=== PATIENT | male | born 1965 | race Caucasian/White ===

== ENCOUNTER 2017-11-27 14:07 | Observation (INO) | payer OTHER ==
[2017-11-27 14:34] LABS: Basophils # (A) 0.1 k/uL (0-0.2); Basophils % (A) 1 %; Eosinophils # (A) 0.1 k/uL (0-0.7); Eosinophils % (A) 2 %; HCT 46.3 % (39.0-53.0); HGB 15.2 gm/dL (13.0-17.5); Lymphocytes # (A) 1.8 k/uL (1.0-4.8); Lymphocytes % (A) 32 %; MCH 30.6 pg (25.0-35.0); MCV 92.7 fL (80.0-100.0); Mean Platelet Volume 6.2; Monocytes # (A) 0.3 k/uL (0-1.0); Monocytes % (A) 6 %; Neutrophils # (A) 3.3 k/uL (1.3-7.7); Neutrophils % (A) 57 %; Platelet Count 244 k/uL (150-450); RBC 4.99 m/uL (4.30-5.90); RDW 13.1 % (11.5-15.5); WBC 5.8 k/uL (3.8-10.6)
[2017-11-27 14:39] LABS: INR 1.1 (<1.2); Partial Thromboplastin Time 25.8 sec (22.0-30.0); Prothrombin Time 10.3 sec (9.0-12.0)
[2017-11-27 14:41] LABS: ALT 24 U/L (21-72); AST 21 U/L (17-59); Albumin 4.5 g/dL (3.5-5.0); Alkaline Phosphatase 68 U/L (38-126); Anion Gap 11 mmol/L; Blood Urea Nitrogen 16 mg/dL (9-20); Calcium 9.3 mg/dL (8.4-10.2); Carbon Dioxide 26 mmol/L (22-30); Chloride 102 mmol/L (98-107); Glucose 91 mg/dL (74-99); Potassium 4.3 mmol/L (3.5-5.1); Sodium 139 mmol/L (137-145); Total Bilirubin 0.9 mg/dL (0.2-1.3); Total Protein 7.5 g/dL (6.3-8.2)
[2017-11-27 14:43] LABS: Creatine Kinase 42 U/L (55-170)
--- NOTE | 2017-11-27 14:55 | XR ---
EXAMINATION TYPE: XR chest 2V DATE OF EXAM: 11/27/2017 COMPARISON: 09/25/2015 INDICATION: Altered mental status TECHNIQUE: Frontal and lateral views of the chest are obtained. FINDINGS: The heart size is normal. The pulmonary vasculature is normal. The lungs are clear. IMPRESSION: 1. No acute pulmonary process.
[2017-11-27 14:56] LABS: Troponin I <0.012 ng/mL (0.000-0.034)
--- NOTE | 2017-11-27 14:59 | CT ---
EXAMINATION TYPE: CT brain wo con DATE OF EXAM: 11/27/2017 COMPARISON: None HISTORY: Altered mental status CT DLP: 1056.5 mGycm Automated exposure control for dose reduction was used. FINDINGS: Moderate degenerative change with a greater central component. Nonspecific low-attenuation the perive ntricular white matter. Tiny area of abnormal density within the left thalamus suggestive of remote l acunar infarction. Appears to be atrophic change of the cerebellum out of proportion to the cerebrum. Calvarium intact. No acute hemorrhage or midline shift. There is a nodular prominence the right MCA. IMPRESSION: DEGENERATIVE CHANGES WITH A GREATER INVOLVEMENT OF THE CEREBELLUM. THERE IS NONSPECIFIC WHITE MATTER CHANGES MOST TYPICAL REMOTE ISCHEMIA. IF THERE IS CONCERN FOR ACUTE ISCHEMIA CORRELATE WITH MRI CL INICALLY WARRANTED. NO ACUTE INTRACRANIAL HEMORRHAGE. THERE IS NODULAR PROMINENCE THE RIGHT MCA BEST SEEN ON AXIAL IMAGE 16 WHICH IS SUSPICIOUS FOR A SMALL ANEURYSM MEASURING 3 MM THIS COULD BE CORRELATED WITH MRA AND CTA [place] [facility] [place] [facility].
--- NOTE | 2017-11-27 15:04 | ED ---
General Adult HPI - General Chief complaint: Altered Mental Status Stated complaint: MEMORY LOSS Time Seen by Provider: 11/27/17 14:09 Source: patient, EMS, RN notes reviewed, old records reviewed Mode of arrival: EMS Limitations: no limitations - History of Present Illness Initial comments: 52-year-old male presents for evaluation of memory loss and confusion. Patient' s symptoms began around 11 AM. He presented for evaluation at approximately 2: 30 PM. He is accompanied by his states he had an episode of confusion and memory loss lasting about 20 minutes. Patient did not remember the events the morning he had some repetitive questioning. Patient denied headache. Denied focal numbness or weakness. He states that yesterday evening he had some left arm and left leg numbness which resolved in several minutes without any specific treatment. No history of CVA or TIA. No cardiovascular history. Patient denies alcohol consumption. Denies chest pain or shortness of breath. Denies fever or chills. - Related Data Home Medications Medication Instructions Recorded Confirmed Metoprolol Tartrate [Lopressor] 12.5 mg PO HS 09/25/15 11/27/17 Previous Rx's Medication Instructions Recorded Aspirin EC [Ecotrin Low Dose] 81 mg PO DAILY #1 tablet. 09/26/15 Allergies Allergy/AdvReac Type Severity Reaction Status Date / Time No Known Allergies Allergy Verified 11/27/17 14:12 Review of Systems ROS Statement: Those systems with pertinent positive or pertinent negative responses have been documented in the HPI. ROS Other: All systems not noted in ROS Statement are negative. Past Medical History Past Medical History: Hyperlipidemia, Hypertension Additional Past Medical History / Comment(s): sleep apnea-USES A CPAP MACHINE, KIDNEY STONE, BEGINNINGS OF CATARACTS History of Any Multi-Drug Resistant Organisms: None Reported Past Surgical History: Hernia Repair Additional Past Surgical History / Comment(s): LT INGUINAL HERNIA REPAIR, TUBES IN EARS,VASECTOMY Past Anesthesia/Blood Transfusion Reactions: No Reported Reaction Past Psychological History: No Psychological Hx Reported Smoking Status: Never smoker Past Alcohol Use History: Rare Past Drug Use History: None Reported - Past Family History Mother Family Medical History: Hypertension Father Family Medical History: No Reported History General Exam Limitations: no limitations General appearance: alert, in no apparent distress Head exam: Present: atraumatic, normocephalic Eye exam: Present: normal appearance, PERRL, EOMI. Absent: nystagmus Neck exam: Present: normal inspection. Absent: tenderness, meningismus Respiratory exam: Present: normal lung sounds bilaterally. Absent: respiratory distress, wheezes Cardiovascular Exam: Present: regular rate, normal rhythm GI/Abdominal exam: Present: soft. Absent: distended, tenderness Extremities exam: Present: normal inspection, normal capillary refill. Absent: pedal edema Neurological exam: Present: alert, oriented X3, CN II-XII intact, other (No ataxia, no dysarthria, normal speech). Absent: motor sensory deficit Psychiatric exam: Present: normal affect, normal mood Skin exam: Present: warm, dry, intact. Absent: cyanosis, diaphoretic Course Vital Signs 11/27/17 11/27/17 11/27/17 14:09 15:18 15:48 Temperature 98.1 F Pulse Rate 59 L 63 58 L Respiratory 16 16 18 Rate Blood Pressure 162/99 146/79 142/90 O2 Sat by Pulse 98 92 L 95 Oximetry 11/27/17 16:59 Temperature Pulse Rate 57 L Respiratory 16 Rate Blood Pressure 134/87 O2 Sat by Pulse 97 Oximetry EKG Findings - EKG Comments: EKG Findings:: EKG: Normal sinus rhythm, rate of 63, HI interval 202, QRS duration 102, QTC [address] segment elevation or depression Medical Decision Making - Medical Decision Making 52-year-old male with episode of confusion and amnesia. Patient has nonfocal neurologic exam. CT is obtained, shows pronounced cerebellar atrophy, likely secondary to remote ischemia, no intracranial hemorrhage, there is concern for aneurysm in the right MCA. CT angiography is ordered in the emergency department. EKG shows normal sinus rhythm, CBC, CMP and troponin are unremarkable. CTA pending. Case discussed with Dr. Regan who will accept admission, neurology placed on consult. Diagnosis: concern for TIA, amnesia, acute confusion resolved - Lab Data Result diagrams: 11/27/17 14:05 11/27/17 14:05 Lab Results 11/27/17 11/27/17 11/27/17 Range/Units 14:05 14:05 14:05 WBC 5.8 (3.8-10.6) k/uL RBC 4.99 (4.30-5.90) m/uL Hgb 15.2 (13.0-17.5) gm/dL Hct 46.3 (39.0-53.0) % MCV 92.7 (80.0-100.0) fL MCH 30.6 (25.0-35.0) pg MCHC 33.0 (31.0-37.0) g/dL RDW 13.1 (11.5-15.5) % Plt Count 244 (150-450) k/uL Neutrophils % 57 % Lymphocytes % 32 % Monocytes % 6 % Eosinophils % 2 % Basophils % 1 % Neutrophils # 3.3 (1.3-7.7) k/uL Lymphocytes # 1.8 (1.0-4.8) k/uL Monocytes # 0.3 (0-1.0) k/uL Eosinophils # 0.1 (0-0.7) k/uL Basophils # 0.1 (0-0.2) k/uL PT (9.0-12.0) sec INR (<1.2) APTT (22.0-30.0) sec Sodium 139 (137-145) mmol/L Potassium 4.3 (3.5-5.1) mmol/L Chloride 102 (98-107) mmol/L Carbon Dioxide 26 (22-30) mmol/L Anion Gap 11 mmol/L BUN 16 (9-20) mg/dL Creatinine 1.00 (0.66-1.25) mg/dL Est GFR (CKD-EPI)AfAm >90 (>60 ml/min/1.73 sqM) Est GFR (CKD-EPI)NonAf 86 (>60 ml/min/1.73 sqM) Glucose 91 (74-99) mg/dL Calcium 9.3 (8.4-10.2) mg/dL Total Bilirubin 0.9 (0.2-1.3) mg/dL AST 21 (17-59) U/L ALT 24 (21-72) U/L Alkaline Phosphatase 68 (38-126) U/L Total Creatine Kinase 42 L (55-170) U/L CK-MB (CK-2) 1.0 (0.0-2.4) ng/mL CK-MB (CK-2) Rel Index 2.4 Troponin I <0.012 (0.000-0.034) ng/mL Total Protein 7.5 (6.3-8.2) g/dL Albumin 4.5 (3.5-5.0) g/dL 11/27/17 Range/Units 14:05 WBC (3.8-10.6) k/uL RBC (4.30-5.90) m/uL Hgb (13.0-17.5) gm/dL Hct (39.0-53.0) % MCV (80.0-100.0) fL MCH (25.0-35.0) pg MCHC (31.0-37.0) g/dL RDW (11.5-15.5) % Plt Count (150-450) k/uL Neutrophils % % Lymphocytes % % Monocytes % % Eosinophils % % Basophils % % Neutrophils # (1.3-7.7) k/uL Lymphocytes # (1.0-4.8) k/uL Monocytes # (0-1.0) k/uL Eosinophils # (0-0.7) k/uL Basophils # (0-0.2) k/uL PT 10.3 (9.0-12.0) sec INR 1.1 (<1.2) APTT 25.8 (22.0-30.0) sec Sodium (137-145) mmol/L Potassium (3.5-5.1) mmol/L Chloride (98-107) mmol/L Carbon Dioxide (22-30) mmol/L Anion Gap mmol/L BUN (9-20) mg/dL Creatinine (0.66-1.25) mg/dL Est GFR (CKD-EPI)AfAm (>60 ml/min/1.73 sqM) Est GFR (CKD-EPI)NonAf (>60 ml/min/1.73 sqM) Glucose (74-99) mg/dL Calcium (8.4-10.2) mg/dL Total Bilirubin (0.2-1.3) mg/dL AST (17-59) U/L ALT (21-72) U/L Alkaline Phosphatase (38-126) U/L Total Creatine Kinase (55-170) U/L CK-MB (CK-2) (0.0-2.4) ng/mL CK-MB (CK-2) Rel Index Troponin I (0.000-0.034) ng/mL Total Protein (6.3-8.2) g/dL Albumin (3.5-5.0) g/dL Disposition Clinical Impression: Amnesia, Confusion Disposition: ADMITTED IP TO THIS [facility] Condition: Stable Is patient prescribed a controlled substance at d/c from ED?: No Referrals: Omari Kirby DO [Primary Care Provider] - 1-2 days Decision to Admit Reason: Admit from EC Decision Date: 11/27/17 Decision Time: 17:25
[2017-11-27] MEDS ORDERED: ASPIRIN 325 MG TAB PO STA (17:25)
--- NOTE | 2017-11-27 17:25 | CT ---
EXAMINATION TYPE: CT angio head neck DATE OF EXAM: 11/27/2017 HISTORY: Altered mental status. COMPARISON: CT DLP: 330.8 mGycm. Automated Exposure Control for Dose Reduction was Utilized. TECHNIQUE: CTA scan of the neck is performed with IV Contrast, patient injected with 65ml mL of Isov ue 370, axial images are obtained, coronal and sagittal reformatted images are reviewed. Three-D harmony nstructed images are created on an independent workstation and reviewed. FINDINGS: There is normal branching pattern of the great vessels on the aortic arch. There is arterial flow in the vertebral arteries which are fairly symmetric. There is arterial flow in the common internal and external carotid arteries bilaterally. The carotid artery bifurcations are widely patent. There is no evidence of carotid or vertebral artery aneurysm or dissection. There is arterial flow in the anterior middle and posterior cerebral arteries. The vertebrobasilar ar raheel system appears normal. There is normal contrast opacification of the venous sinuses. I see no ev idence of intracranial artery aneurysm or neovascularity. There is no mass effect. There is no eviden ce of stenosis. IMPRESSION: Normal CT angiogram of the neck. Normal CT angiogram of the brain.
--- NOTE | 2017-11-27 18:20 | P.HPIM ---
History of Present Illness H&P Date: 11/27/17 Chief Complaint: Memory Loss and confusion 52-year-old male presents to the ED via private vehicle for evaluation of memory loss and confusion. Patient's symptoms began around 11 AM. He presented for evaluation at approximately 2:30 PM. He is accompanied by his states he had an episode of confusion and memory loss lasting about 20 minutes. The is reporting it's more short-term memory loss, the patient has had increasingly stressful situation at work and was apparently recently demoted. Patient did not remember the events the morning he had some repetitive questioning. Patient denied headache or head trauma Denied focal numbness or weakness. He states that yesterday evening he had some left arm and left leg numbness which resolved in several minutes without any specific treatment. No history of CVA or TIA. No cardiovascular history. Patient denies alcohol consumption. Denies chest pain or shortness of breath. Denies fever or chills. Reports family history of heart disease in uncle that apparently had a brain aneurysm. On workup in the ER the patient had a CT of the head that showed showed changes in the cerebellum, with a nodular prominence in the right MCA suspicious for small aneurysm. Subsequent CTA of the brain and neck was normal. Past Medical History Past Medical History: Hyperlipidemia, Hypertension Additional Past Medical History / Comment(s): sleep apnea-USES A CPAP MACHINE, KIDNEY STONE, BEGINNINGS OF CATARACTS History of Any Multi-Drug Resistant Organisms: None Reported Past Surgical History: Hernia Repair Additional Past Surgical History / Comment(s): LT INGUINAL HERNIA REPAIR, TUBES IN EARS,VASECTOMY Past Anesthesia/Blood Transfusion Reactions: No Reported Reaction Past Psychological History: No Psychological Hx Reported Smoking Status: Never smoker Past Alcohol Use History: Rare Past Drug Use History: None Reported - Past Family History Mother Family Medical History: Hypertension Father Family Medical History: No Reported History Medications and Allergies Home Medications Medication Instructions Recorded Confirmed Type Metoprolol Tartrate [Lopressor] 12.5 mg PO HS 09/25/15 11/27/17 History Aspirin EC [Ecotrin Low Dose] 81 mg PO DAILY #1 tablet. 09/26/15 11/27/17 Rx Allergies Allergy/AdvReac Type Severity Reaction Status Date / Time No Known Allergies Allergy Verified 11/27/17 14:12 Physical Exam Vitals: Vital Signs Temp Pulse Resp BP Pulse Ox 11/27/17 16:59 57 L 16 134/87 97 11/27/17 15:48 58 L 18 142/90 95 11/27/17 15:18 63 16 146/79 92 L 11/27/17 14:09 98.1 F 59 L 16 162/99 98 Intake and Output 11/27/17 11/27/17 11/27/17 06:59 14:59 22:59 Other: Weight 81.647 kg Constitutional: No acute distress, conversant, pleasant Eyes: Anicteric sclerae, moist conjunctiva, no lid-lag, PERRLA ENMT: NC/AT,Oropharynx clear, no erythema, exudates Neck:Supple, FROM, no masses, or JVD, No carotid bruits; No thyromegaly Lungs: Clear to auscultation, Clear to percussion, Normal respiratory effort, no accessory muscle use Cardiovascular: Heart regular in rate and rhythm, No murmurs, gallops, or rubs no peripheral edema Abdominal: Soft Nontender, nom distended, no guarding, no rebound or rigidity, Normoactive bowel sounds No hepatomegaly, No splenomegaly, No palpable mass No abdominal wall hernia noted Skin: Normal temperature, tone, texture, turgor, No induration No subcutaneous nodules, No rash, lesions, No ulcers Extremities:No digital cyanosis No clubbing, Pedal pulses intact and symmetrical Radial pulses intact and symmetrical Normal gait and station, No calf tenderness Psychiatric: Depressed, flat affect, confused Neuro: Muscles Strength 5/5 in all 4 extremities, Sensation to light touch grossly present throughout, Cranial nerves II-XII grossly intact. No focal sensory deficits Results CBC & Chem 7: 11/27/17 14:05 11/27/17 14:05 Labs: Abnormal Lab Results - Last 24 Hours (Table) 11/27/17 Range/Units 14:05 Total Creatine Kinase 42 L (55-170) U/L Assessment and Plan (1) Amnesia Current Visit: Yes Status: Acute Code(s): R41.3 - OTHER AMNESIA SNOMED Code(s): 072518282 (2) Confusion Current Visit: Yes Status: Acute Code(s): R41.0 - DISORIENTATION, UNSPECIFIED SNOMED Code(s): 092748429 (3) Hypertension Current Visit: No Status: Acute Code(s): I10 - ESSENTIAL (PRIMARY) HYPERTENSION SNOMED Code(s): 79712063 Plan: Patient is placed in observation anticipate a less than 2 midnight stay with short-term memory loss of amnesia confusion triggered by acute stressful event at work. CTA of the head and neck are negative and is read as normal, and neurology Dr. Edwards has been consulted from the ER. Patient was given aspirin , and lipid panel at echocardiogram has been ordered We'll plan to consult big machine consultant psychiatry for further eval and recommendations. We'll continue to follow the patient's clinical course
[2017-11-27] MEDS: SODIUM CHLORIDE 0.9% 1,000 ML IV SCH (19:09)
[2017-11-28 06:55] LABS: Cholesterol 215 mg/dL (<200); HDL Cholesterol 42 mg/dL (40-60); LDL Cholesterol,Calculated 148 mg/dL (0-99); Triglycerides 126 mg/dL (<150)
--- NOTE | 2017-11-28 08:13 | ECHOF ---
Referral Reason:Thrombus MEASUREMENTS -------- HEIGHT: 170.2 cm WEIGHT: 82.1 kg BP: 136/81 RVIDd: 2.8 cm (< 3.3) IVSd: 1.9 cm (0.6 - 1.1) LVIDd: 3.3 cm (3.9 - 5.3) LVPWd: 1.7 cm (0.6 - 1.1) IVSs: 2.1 cm LVIDs: 2.1 cm LVPWs: 1.8 cm Ao Diam: 3.6 cm (2.0 - 3.7) AV Cusp: 1.9 cm (1.5 - 2.6) LA Diam: 3.0 cm (2.7 - 3.8) MV EXCURSION: 14.924 mm (> 18.000) MV EF SLOPE: 54 mm/s (70 - 150) EPSS: 0.3 cm MV E Porfirio: 0.74 m/s MV DecT: 226 ms MV A Porfirio: 0.90 m/s MV E/A Ratio: 0.82 AR PHT: 123 ms RAP: 5.00 mmHg RVSP: 16.77 mmHg FINDINGS -------- Sinus rhythm. This was a technically good study. The left ventricular size is normal. There is severe concentric left ventricular hypertrophy. Ove rall left ventricular systolic function is normal with, an EF between 55 - 60 %. The right ventricle is normal in size and function. The left atrium is normal in size. The right atrium is normal in size. Trace amount of aortic regurgitation. There is trace mitral regurgitation. Trace tricuspid regurgitation present. The right ventricular systolic pressure, as measured by Dopp ler, is 16.77mmHg. Pulmonic valve appears structurally normal. The aortic root size is normal. Normal inferior vena cava with normal inspiratory collapse consistent with estimated right atrial pre ssure of 5 mmHg. The pericardium is normal. CONCLUSIONS -------- 1. Sinus rhythm. 2. This was a technically good study. 3. The left ventricular size is normal. 4. There is severe concentric left ventricular hypertrophy. 5. Overall left ventricular systolic function is normal with, an EF between 55 - 60 %. 6. The right ventricle is normal in size and function. 7. The left atrium is normal in size. 8. The right atrium is normal in size. 9. Trace amount of aortic regurgitation. 10. There is trace mitral regurgitation. 11. Trace tricuspid regurgitation present. 12. The right ventricular systolic pressure, as measured by Doppler, is 16.77mmHg. 13. Pulmonic valve appears structurally normal. 14. The aortic root size is normal. 15. Normal inferior vena cava with normal inspiratory collapse consistent with estimated right atrial pressure of 5 mmHg. 16. The pericardium is normal. [employer] JOURNEYMAN: Lucero Foster RDCS
--- NOTE | 2017-11-28 14:53 | P.PN ---
Subjective Progress Note Date: 11/28/17 Patient feeling much better today, at bedside. Previously seen by neurology PA. Awaiting consult note, patient has no complaints. Also awaiting psychiatry consult Objective - Vital Signs Vital signs: Vital Signs Temp 98.1 F 11/28/17 11:14 Pulse 64 11/28/17 11:14 Resp 16 11/28/17 11:14 BP 135/85 11/28/17 11:14 Pulse Ox 96 11/28/17 11:14 Intake & Output 11/27/17 11/28/17 11/28/17 18:59 06:59 18:59 Intake Total 480 Balance 480 Weight 81.647 kg 82.2 kg Intake: Oral 480 Other: # Voids 1 1 - Exam Constitutional: No acute distress, conversant, pleasant Eyes: Anicteric sclerae, moist conjunctiva, no lid-lag, PERRLA ENMT: NC/AT,Oropharynx clear, no erythema, exudates Neck:Supple, FROM, no masses, or JVD, No carotid bruits; No thyromegaly Lungs: Clear to auscultation, Clear to percussion, Normal respiratory effort, no accessory muscle use Cardiovascular: Heart regular in rate and rhythm, No murmurs, gallops, or rubs no peripheral edema Abdominal: Soft Nontender, nom distended, no guarding, no rebound or rigidity, Normoactive bowel sounds No hepatomegaly, No splenomegaly, No palpable mass No abdominal wall hernia noted Skin: Normal temperature, tone, texture, turgor, No induration No subcutaneous nodules, No rash, lesions, No ulcers Extremities:No digital cyanosis No clubbing, Pedal pulses intact and symmetrical Radial pulses intact and symmetrical Normal gait and station, No calf tenderness Psychiatric: Alert and oriented to person, place and time, flat affect, increased stressors related to work Neuro: Muscles Strength 5/5 in all 4 extremities, Sensation to light touch grossly present throughout, Cranial nerves II-XII grossly intact. No focal sensory deficits - Labs CBC & Chem 7: 11/27/17 14:05 11/27/17 14:05 Labs: Abnormal Lab Results - Last 24 Hours (Table) 11/28/17 Range/Units 05:47 Cholesterol 215 H (<200) mg/dL LDL Cholesterol, Calc 148 H (0-99) mg/dL Assessment and Plan (1) Amnesia Narrative/Plan: * Short-term memory impairment * Neurology consulted Current Visit: Yes Status: Acute Code(s): R41.3 - OTHER AMNESIA SNOMED Code(s): 610747614 (2) Confusion Narrative/Plan: * Patient to be seen by psych and neurology Current Visit: Yes Status: Acute Code(s): R41.0 - DISORIENTATION, UNSPECIFIED SNOMED Code(s): 391860934 (3) Hypertension Narrative/Plan: * Blood pressure stable and controlled Current Visit: No Status: Acute Code(s): I10 - ESSENTIAL (PRIMARY) HYPERTENSION SNOMED Code(s): 01021436
--- NOTE | 2017-11-28 16:41 | P.CNNES ---
History of Present Illness Consult date: 11/28/17 Requesting physician: Daniel Stone Reason for Consult: Memory, Confusion Chief complaint: Confusion History of Present Illness: Neurology is consulting on a 52-year-old male for memory difficulty and rule out TIA. Patient presented to the ED on 11/27/17. Patient stated his symptoms began at approximately 11 AM. Presentation at the ED was at 1430 hrs. Patient complained of confusion and memory loss of approximately 20 minutes. Patient did not remember events of the earlier today and had some repetitive questioning. Patient denied headache, focal numbness or weakness. He stated to ED personnel that he had some left arm and left leg numbness which resolved in several minutes without any specific treatment. Denies history of CVA or TIA. No cardiovascular history. Patient denied chest pain or shortness of breath. Provider spoke to patient in room. Patient was alert oriented 3, resting in bed in no acute distress. Patient states that he for the last several months has been having increased occurrences of what appeared to be petit mall Seizure Activity. Patient states that he would "zone out" numerous times per day, feel tired after events with events increasing in duration and frequency in the last several months. Overall these events have been occurring for greater than 12- 18 months. Patient states he has been demoted at his employment due to inability to concentrate, maintaining conversation without "zoning out". Patient denies association of left arm and left leg numbness with events over the last 12-18 months. He also does not recall stating that he had left arm or left leg numbness to the ED personnel. Patient also states that during occurrences, bystanders need to physically arouse the patient before he will return to baseline. Review of Systems systems not noted are negative Past Medical History Past Medical History: Chest Pain / Angina, Hyperlipidemia, Hypertension Additional Past Medical History / Comment(s): 2016 -stress test-neg, sleep apnea -USES A CPAP MACHINE, KIDNEY STONE-passed on own, BEGINNINGS OF CATARACT lt eye , hx broken rt foot-has plate. History of Any Multi-Drug Resistant Organisms: None Reported Past Surgical History: Hernia Repair Additional Past Surgical History / Comment(s): LT INGUINAL HERNIA REPAIR, TUBES IN EARS,VASECTOMY, rt foot sx has plate. Past Anesthesia/Blood Transfusion Reactions: Motion Sickness Additional Past Anesthesia/Blood Transfusion Reaction / Comment(s): motion sickness if on a boat. Smoking Status: Never smoker - Past Family History Mother Family Medical History: Hypertension Father Family Medical History: No Reported History Medications and Allergies Home Medications Medication Instructions Recorded Confirmed Type Metoprolol Tartrate [Lopressor] 12.5 mg PO HS 09/25/15 11/27/17 History Aspirin EC [Ecotrin Low Dose] 81 mg PO DAILY #1 tablet. 09/26/15 11/27/17 Rx Allergies Allergy/AdvReac Type Severity Reaction Status Date / Time No Known Allergies Allergy Verified 11/27/17 14:12 Physical Examination - Vital Signs Vital Signs: Vital Signs Temp Pulse Pulse Resp BP BP Pulse Ox 11/28/17 15:48 67 11/28/17 15:37 97.3 F L 67 16 133/87 98 11/28/17 11:14 98.1 F 64 16 135/85 96 11/28/17 08:00 98.3 F 70 16 133/89 96 11/28/17 03:40 98.1 F 60 18 136/81 97 11/27/17 23:40 98.2 F 52 L 18 134/79 98 11/27/17 20:40 97.9 F 68 18 143/85 97 11/27/17 20:30 98.1 F 77 18 140/80 98 11/27/17 19:03 75 18 141/90 95 11/27/17 16:59 57 L 16 134/87 97 Intake and Output 11/28/17 11/28/17 11/28/17 06:59 14:59 22:59 Intake Total 480 Balance 480 Intake: Oral 480 Other: # Voids 1 1 Weight 82.2 kg General appearance: Alert & oriented x4, no apparent distress. Head: Atraumatic, normocephalic, normal inspection Eyes: Well appearance, PERRLA, EOMI. Absent scleral icterus, conjunctival injection, nystagmus, periorbital swelling. Ear, nose and throat: Normal exam, mucous membranes moist Neck: Normal inspection, absent tenderness, lymphadenopathy. Respiratory: No increased work of breathing Cardiovascular: Regular rate, rhythm GI/abdominal: Normal bowel sounds, nondistended, no tenderness, no guarding, no rebound, no rigidity. Extremities: All range of motion, normal capillary refill, no tenderness, pedal edema joint swelling, calf tenderness. Neurological: cranial nerves II through XII intact no lateralizing weakness no seizure activity noted on physical exam no pronator drift and no nystagmus. Left lower extremity: 4+/5 Right lower extremity: 4+/5 Left upper extremity: 4+/5 Right upper extremity: 4+/5 Sensation: full in extremities 4 Psychological: Mood and affect appropriate for setting. Results CT angiogram of the head and neck notes no hemodynamically significant stenosis. EEG pending CT brain - Laboratory Findings CBC and BMP: 11/27/17 14:05 11/27/17 14:05 Abnormal Lab Findings: Abnormal Labs 11/27/17 11/28/17 14:05 05:47 Total Creatine Kinase 42 L Cholesterol 215 H LDL Cholesterol, Calc 148 H Assessment and Plan (1) TIA (transient ischemic attack) Narrative/Plan: The patient's acute symptoms for presentation appear consistent with TIA. Patient reports he is back to baseline and has no residual symptoms and denies reporting some symptoms as noted. However, family/bystander observations support diagnosis. Continue: 325 mg aspirin as implemented by the ED Continue: Lipitor as prescribed at 20 mg daily. Continue: neurochecks as implemented Current Visit: Yes Status: Acute Code(s): G45.9 - TRANSIENT CEREBRAL ISCHEMIC ATTACK, UNSPECIFIED SNOMED Code(s): 324676848 (2) Absence seizure Narrative/Plan: Patient secondary diagnosis is absence seizure. Given the zahida symptoms of inability to hold conversation, "zoning out" on a repetitive frequent basis as well as duration of activities/occurrences, the symptoms tend to support diagnosis. Patient has had no diagnostic workup for symptoms. I'm going to order an EEG at this time. CT brain as noted. We can perform an MRI brain in the outpatient setting related to seizure investigation. I was going to prescribe Zarontin 250 mg twice a day and reassess in the outpatient setting at the office however the medication is not stocked in the house pharmacy and will need to be started outpatient. Continue seizure precautions at this time. Current Visit: Yes Status: Acute Code(s): G40.A09 - ABSENCE EPILEPTIC SYNDROME, NOT INTRACTABLE, W/O STAT EPI SNOMED Code(s): 61332408 (3) Confusion Narrative/Plan: secondary to #1 and #2 above Current Visit: Yes Status: Acute Code(s): R41.0 - DISORIENTATION, UNSPECIFIED SNOMED Code(s): 201450153 (4) Hyperlipidemia Narrative/Plan: As noted in laboratory blood work Prescribed Lipitor as previously noted Continue in the outpatient setting Repeat lipid panel at 90 days Current Visit: No Status: Acute Code(s): E78.5 - HYPERLIPIDEMIA, UNSPECIFIED SNOMED Code(s): 45844961 (5) Hypertension Narrative/Plan: As noted under vitals. Continue management per primary team. Current Visit: No Status: Acute Code(s): I10 - ESSENTIAL (PRIMARY) HYPERTENSION SNOMED Code(s): 62403230 Plan: STATUS: Neurology will continue to follow and provide updates as warranted. If patient becomes symptomatic, order MRI of the brain without contrast and notify neurology immediately. If patient remains asymptomatic and testing is taken, anticipate neurological clearance on 11/29/17. I have discussed the plan of care with the physician prior to implementation and he agrees with the plan as implemented.
--- NOTE | 2017-11-28 17:02 | P.HP ---
Psychiatric H&P - . H&P Date: 11/28/17 History & Physical: Allergies Allergy/AdvReac Type Severity Reaction Status Date / Time No Known Allergies Allergy Verified 11/27/17 14:12 Vital Signs Temp 97.3 F L 11/28/17 15:37 Pulse 67 11/28/17 15:48 Resp 16 11/28/17 15:37 BP 133/87 11/28/17 15:37 Pulse Ox 98 11/28/17 15:37 Intake & Output 11/27/17 11/28/17 11/28/17 18:59 06:59 18:59 Intake Total 480 Balance 480 Weight 81.647 kg 82.2 kg Intake: Oral 480 Other: # Voids 1 1 Laboratory Last Values WBC 5.8 k/uL (3.8-10.6) 11/27/17 14:05 RBC 4.99 m/uL (4.30-5.90) 11/27/17 14:05 Hgb 15.2 gm/dL (13.0-17.5) 11/27/17 14:05 Hct 46.3 % (39.0-53.0) 11/27/17 14:05 MCV 92.7 fL (80.0-100.0) 11/27/17 14:05 MCH 30.6 pg (25.0-35.0) 11/27/17 14:05 MCHC 33.0 g/dL (31.0-37.0) 11/27/17 14:05 RDW 13.1 % (11.5-15.5) 11/27/17 14:05 Plt Count 244 k/uL (150-450) 11/27/17 14:05 Neutrophils % 57 % 11/27/17 14:05 Lymphocytes % 32 % 11/27/17 14:05 Monocytes % 6 % 11/27/17 14:05 Eosinophils % 2 % 11/27/17 14:05 Basophils % 1 % 11/27/17 14:05 Neutrophils # 3.3 k/uL (1.3-7.7) 11/27/17 14:05 Lymphocytes # 1.8 k/uL (1.0-4.8) 11/27/17 14:05 Monocytes # 0.3 k/uL (0-1.0) 11/27/17 14:05 Eosinophils # 0.1 k/uL (0-0.7) 11/27/17 14:05 Basophils # 0.1 k/uL (0-0.2) 11/27/17 14:05 PT 10.3 sec (9.0-12.0) 11/27/17 14:05 INR 1.1 (<1.2) 11/27/17 14:05 APTT 25.8 sec (22.0-30.0) 11/27/17 14:05 Sodium 139 mmol/L (137-145) 11/27/17 14:05 Potassium 4.3 mmol/L (3.5-5.1) 11/27/17 14:05 Chloride 102 mmol/L (98-107) 11/27/17 14:05 Carbon Dioxide 26 mmol/L (22-30) 11/27/17 14:05 Anion Gap 11 mmol/L 11/27/17 14:05 BUN 16 mg/dL (9-20) 11/27/17 14:05 Creatinine 1.00 mg/dL (0.66-1.25) 11/27/17 14:05 Est GFR (CKD-EPI)AfAm >90 (>60 ml/min/1.73 sqM) 11/27/17 14:05 Est GFR (CKD-EPI)NonAf 86 (>60 ml/min/1.73 sqM) 11/27/17 14:05 Glucose 91 mg/dL (74-99) 11/27/17 14:05 Calcium 9.3 mg/dL (8.4-10.2) 11/27/17 14:05 Total Bilirubin 0.9 mg/dL (0.2-1.3) 11/27/17 14:05 AST 21 U/L (17-59) 11/27/17 14:05 ALT 24 U/L (21-72) 11/27/17 14:05 Alkaline Phosphatase 68 U/L (38-126) 11/27/17 14:05 Total Creatine Kinase 42 U/L (55-170) L 11/27/17 14:05 CK-MB (CK-2) 1.0 ng/mL (0.0-2.4) 11/27/17 14:05 CK-MB (CK-2) Rel Index 2.4 11/27/17 14:05 Troponin I <0.012 ng/mL (0.000-0.034) 11/27/17 14:05 Total Protein 7.5 g/dL (6.3-8.2) 11/27/17 14:05 Albumin 4.5 g/dL (3.5-5.0) 11/27/17 14:05 Triglycerides 126 mg/dL (<150) 11/28/17 05:47 Cholesterol 215 mg/dL (<200) H 11/28/17 05:47 LDL Cholesterol, Calc 148 mg/dL (0-99) H 11/28/17 05:47 HDL Cholesterol 42 mg/dL (40-60) 11/28/17 05:47 11/28/17 17:01 Chief complaint 52 year old male, presented to ER with memory problems and confusion. Psychiatry was consulted to evaluate patient for memory problems and confusion. History of presenting illness Patient was lying on the bed. His was also present during the Interview. Reportedly patient was hospitalized three years ago with chest pain and numbness of his left hand. Over the past two years patient reports having problems at work mostly with his memory. He reports difficulty remembering or memorizing the instructions at work. He reports being demoted two days ago at work due to his memory problems, being slow, having blank stares and looking confused. He denies current symptoms of depression, other than feeling upset about his demoted at work. He denies current suicidal or homicidal ideations. He denies history of auditory or visual hallucinations. He denies paranoia or symptoms of daina. Past psychiatric history He reports being referred to his family physician for being slow at work. He reports being started on Zoloft in May by his family physician. Patients reports Zoloft had made his memory problems worse and there he got weaned off of Zoloft in august 2017. No other psychiatric treatment reported. Substance use history Denies Medical history Hyperlipidemia, Hypertension,sleep apnea-USES A CPAP MACHINE, kidney stone, cataracts Social history Born in [place], [place]. Denies childhood history of abuse. Graduated highschool and [id number] two years of college. Got in his thirties. Has been working for [email or web address] for the past 19 years. Mental status exam 52 year old male. He appeared his stated age. He is co-operative and pleasant. Maintains good eye contact. No abnormal movements noted. His speech and thought process are goal directed. His mood is anxious and affect appropriate. Denies auditory or visual hallucinations. No paranoia. He is alert and oriented x 4. He is able to repeat 3/3 objects immediately. He was able to spell WORLD forwards and backwards. He was able to recall 2/3 objects after five minutes. He was able to do serial 7S. Denies suicidal or homicidal ideations. Has fair insight and judgment. Diagnosis Adjustment disorder with anxious mood. Plan He does not need any psychiatric medications at his time. He was evaluated by neurology for possible Absence seizures. His memory problems could be related to underlying medical cause. If his symptoms worse or develops new symptoms consult psychiatry. Thank you for consulting, will sign off on this patient.
[2017-11-28] MEDS: ATORVASTATIN 20 MG TAB PO SCH (17:14)
[2017-11-28] MEDS: ASPIRIN 325 MG TAB PO SCH (17:14)
[2017-11-28] MEDS: SODIUM CHLORIDE 0.9% 1,000 ML IV SCH (17:16)
[2017-11-29 08:54] VITALS: BP 140/64; PULSE 83; RESP 14; TEMP 98.7
[2017-11-29] MEDS: ATORVASTATIN 20 MG TAB PO SCH (08:57)
[2017-11-29] MEDS: ASPIRIN 325 MG TAB PO SCH (08:57)
[2017-11-29] MEDS ORDERED: METOPROLOL TARTRATE 12.5 MG TAB PO SCH (09:00)
--- NOTE | 2017-11-29 10:48 | P.DS ---
Providers Date of admission: 11/27/17 17:25 Expected date of discharge: 11/29/17 Attending physician: Olman Regan MD Consults: 11/27/17 17:26 Consult Physician Routine Consulting Provider: Maximiliano Edwards Consult Reason/Comments: Concern for TIA, amnesia Do you want consulting provider notified?: Yes 11/27/17 18:18 Consult Physician Routine Consulting Provider: Nimisha Lay Consult Reason/Comments: psych eval, acute stress response, amnesia Do you want consulting provider notified?: Yes Primary care physician: Omari Kirby - Anthony Diagnosis(es) (1) Amnesia Current Visit: Yes Status: Acute (2) Confusion Current Visit: Yes Status: Acute (3) Hypertension Current Visit: No Status: Acute (4) TIA (transient ischemic attack) Current Visit: Yes Status: Acute (5) Absence seizure Current Visit: Yes Status: Acute (6) Hyperlipidemia Current Visit: No Status: Acute Hospital Course: The patient is a 53-year-old male that presented with confusion, with transient amnesia with short-term memory impairment and was placed on observation due to concern for CVA TIA. Initial CT of the head was suspicious for small aneurysm however subsequent CT angiogram the head and neck were normal. Echocardiogram showed ejection fraction of 55-60%. The patient was started on aspirin, atorvastatin, and resumed on his home dose of metoprolol. Neurology was consulted for further recommendations, seen by Dr. Edwards's PA determined to be underlying absent Seizures. Neurology plans a follow-up the patient in clinic and will the patient will have a EEG outpatient. The patient was also seen by psychiatry and was determined to have adjustment disorder with anxious mood without any recommendations at this time for any psychotropic medications The patient is started on Zarontin 250 mg twice a day. This discharge process took approximately 30 minutes Patient Condition at Discharge: Stable Plan - Discharge Summary Discharge Rx Participant: Yes New Discharge Prescriptions: New Aspirin 325 mg PO DAILY #30 tab Atorvastatin [Lipitor] 20 mg PO DAILY #30 tab Continue Metoprolol Tartrate [Lopressor] 12.5 mg PO BID Discontinued Aspirin EC [Ecotrin Low Dose] 81 mg PO DAILY #1 tablet. Discharge Medication List Metoprolol Tartrate [Lopressor] 12.5 mg PO BID 09/25/15 [History] Aspirin 325 mg PO DAILY #30 tab 11/29/17 [Rx] Atorvastatin [Lipitor] 20 mg PO DAILY #30 tab 11/29/17 [Rx] Follow up Appointment(s)/Referral(s): Omari Kirby DO [Primary Care Provider] - 1-2 days Discharge Disposition: HOME SELF-CARE
--- NOTE | 2017-11-29 15:38 | P.PN ---
Subjective Progress Note Date: 11/29/17 Principal diagnosis: Petit Mal Seizure- New Onset TIA- secondary diagnosis Neurology is following on a 52-year-old male for new onset petit mal seizure and TIA over the last 12 months. Patient has history of several months of Absence like activity involving episodes of zoning out and other concentration related difficulty. Patient's imaging of the brain was negative, no seizure- like activity noted for greater than 36-48 hours. Patient was to be started on Zarontin inpatient but it is not stocked in the hospital pharmacy. No alternative medication on hand and pharmacy. Patient continued with nursing surveillance for any seizure-like activity none was noted. EEG was taken. TIA is likely concurrent secondary etiology given the patient's presentation and reported symptoms over the last several months and acutely. Today, patient was alert and oriented 3, no acute distress, resting in bed. Nursing reports no seizure activity within the last 24 hours. Patient denies seizure activity in the last 72 hours. Patient states he is progressing well. Discussed medication administration/initiation with patient. Discussed the medication was not on hand and pharmacy. Patient would be discharged with written prescription to fill at pharmacy for Zarontin. Patient highly encouraged to start medication. See assessment and plan for further information. Objective - Vital Signs Vital signs: Vital Signs Temp 98.7 F 11/29/17 08:00 Pulse 83 11/29/17 08:00 Resp 14 11/29/17 08:00 BP 140/64 11/29/17 08:00 Pulse Ox 96 11/29/17 08:00 Intake & Output 11/28/17 11/29/17 11/29/17 18:59 06:59 18:59 Intake Total 720 480 Balance 720 480 Weight 80.8 kg Intake: Oral 720 480 Other: # Voids 1 1 - Exam General appearance: Alert & oriented x4, no apparent distress. Head: Atraumatic, normocephalic, normal inspection Eyes: Well appearance, PERRLA, EOMI. Absent scleral icterus, conjunctival injection, nystagmus, periorbital swelling. Ear, nose and throat: Normal exam, mucous membranes moist Neck: Normal inspection, absent tenderness, lymphadenopathy. Respiratory: No increased work of breathing Cardiovascular: Regular rate, rhythm GI/abdominal: Normal bowel sounds, nondistended, no tenderness, no guarding, no rebound, no rigidity. Extremities: All range of motion, normal capillary refill, no tenderness, pedal edema joint swelling, calf tenderness. Neurological: cranial nerves II through XII intact no lateralizing weakness no seizure activity noted on physical exam no pronator drift and no nystagmus. strength equal and symmetrical in all 4 extremities sensation equal and symmetrical in all 4 extremities Psychological: Mood and affect appropriate for setting. - Labs CBC & Chem 7: 11/27/17 14:05 11/27/17 14:05 Assessment and Plan (1) TIA (transient ischemic attack) Narrative/Plan: The patient's acute symptoms for presentation appear consistent with TIA. Patient reports he is back to baseline and has no residual symptoms and denies reporting some symptoms as noted. However, family/bystander observations support diagnosis. Continue: 325 mg aspirin as implemented by the ED Continue: Lipitor as prescribed at 20 mg daily. Continue: neurochecks as implemented patient be discharged with medications as noted. Status: Acute Code(s): G45.9 - TRANSIENT CEREBRAL ISCHEMIC ATTACK, UNSPECIFIED SNOMED Code(s): 415014722 (2) Absence seizure Narrative/Plan: Patient secondary diagnosis is absence seizure. Given the zahida symptoms of inability to hold conversation, "zoning out" on a repetitive frequent basis as well as duration of activities/occurrences, the symptoms tend to support diagnosis. Patient has had no diagnostic workup for symptoms. I'm going to order an EEG at this time. CT brain as noted. We can perform an MRI brain in the outpatient setting related to seizure investigation. I was going to prescribe Zarontin 250 mg twice a day and reassess in the outpatient setting at the office however the medication is not stocked in the house pharmacy and will need to be started outpatient. patient appeared provided a prescription for Zarontin 250 mg twice a day EEG is taken. Status: Acute Code(s): G40.A09 - ABSENCE EPILEPTIC SYNDROME, NOT INTRACTABLE, W/O STAT EPI SNOMED Code(s): 51910332 (3) Confusion Narrative/Plan: secondary to #1 and #2 above Status: Acute Code(s): R41.0 - DISORIENTATION, UNSPECIFIED SNOMED Code(s): 390283104 (4) Hyperlipidemia Narrative/Plan: As noted in laboratory blood work Prescribed Lipitor as previously noted Continue in the outpatient setting Repeat lipid panel at 90 days Status: Acute Code(s): E78.5 - HYPERLIPIDEMIA, UNSPECIFIED SNOMED Code(s): 50059186 (5) Hypertension Narrative/Plan: As noted under vitals. Continue management per primary team. Status: Acute Code(s): I10 - ESSENTIAL (PRIMARY) HYPERTENSION SNOMED Code(s) : 47868804 Plan: STATUS: patient currently cleared for discharge from a neurological standpoint. Patient to initiate Zarontin 250 twice a day outpatient as well as continue antiplatelet and anti-Elizabeth lipidemic medications. Patient to be seen in the office/request follow-up appointment within 10-14 days. Patient originally rounded on at 0845 hrs. I have discussed the plan of care with the physician prior to implementation and he agrees with the plan as implemented.
--- NOTE | 2017-12-08 08:28 | CDI ---
Outpatient Documentation Clarification Form Date: 12-08-17 CDS/Electric Switch Tester Name: JUDY RIOS Phone: If you have question, contact Asiya Gurrola Shop Superintendent at M-F 8:30 am to 6pm. Patient Name: JAVON ANAND Admit Date: 11-27-17 Discharge Date: 11-29-17 ATTENTION: The Clinical Documentation Specialists (CDI) and [facility] Coding Staff appreciate your assistance in clarifying documentation. Please respond to the clarification below the line at the bottom and electronically sign. The CDI & [facility] Coding staff will review the response and follow-up if needed. Please note: Queries are made part of the Legal Health Record. If you have any questions, please contact the author of this message via ITS or call the Shop Superintendent. Dr. Regan, Please confirm diagnosis of Transient Ischemic Attack. If TIA is suspected or probable, please specify below the line. ie: "suspect TIA" If TIA is a confirmed diagnosis, please specify below the line. ie: "ruled in TIA" Thank you for your time, Judy Rios please refer to discharge summary and consultants note MTDD
== END 2017-11-29 13:36 | disposition home or self-care (01) ==
LOC: EC 14:07 → 6SEL 17:25
PROVIDERS: ADMIT Family Medicine; ATTEND Family Medicine
DX: G45.4 Transient global amnesia (principal); I10 Essential (primary) hypertension; G45.9 Transient cerebral ischemic attack, unspecified; G40.A09 Absence epileptic syndrome, not intractable, without status epilepticus; E78.5 Hyperlipidemia, unspecified; F43.22 Adjustment disorder with anxiety; Z79.899 Other long term (current) drug therapy; Z79.82 Long term (current) use of aspirin; G47.30 Sleep apnea, unspecified; Z99.89 Dependence on other enabling machines and devices; Z87.442 Personal history of urinary calculi; Z82.49 Family history of ischemic heart disease and other diseases of the circulatory system
CPT/HCPCS: 36415; 70450; 70496; 70498; 71046; 80053; 80061; 82550; 82553; 84484; 85025; 85610; 85730; 93005; 93306; 99285

== ENCOUNTER → 2021-10-16 | Outpatient (CLI) | payer BC ==
--- NOTE | 2021-10-16 19:51 | CONS ---
CONSULTATION DATE OF SERVICE: 10/16/2021 56-year-old gentleman has been evaluated in [facility] for obstructive sleep apnea- hypopnea syndrome. HISTORY OF PRESENT ILLNESS SLEEP-WAKE EVALUATION: Patient has been diagnosed with obstructive sleep apnea about 5 years ago in another institution, started to use CPAP equipment, but then quit usage about 3 years ago. At that time, patient developed some problems with his CPAP unit. SLEEP SCHEDULE: Presently, his sleep schedule basically 7 days a week from 9:00 pm to 5:30 a.m. FALLING ASLEEP: No problems with falling asleep. No TV in bedroom. DURING SLEEP: He usually sleeps on the back position. He has loud snoring and episodes of stopped breathing during sleep. He wakes up from sleep 2 times with 2 episodes of nocturia. DURING THE DAY/SLEEP WAKE EVALUATION: In the morning, he has difficulties paying attention, falling asleep during the day, has problems with memory and depression. [place] Sleepiness Scale increased to 12. He does not take naps. No history of hypnagogic hallucinations, sleep paralysis or cataplexy. PAST MEDICAL HISTORY: Positive for hypertension, hyperlipidemia and carpal tunnel syndrome. PAST SURGICAL HISTORY: Surgery for carpal tunnel syndrome. MEDICATIONS: Metoprolol once a day, atorvastatin once a day. SOCIAL HISTORY: Negative for smoking, alcohol consumption occasional. FAMILY HISTORY: Hypertension, hyperlipidemia, dementia. Sleep apnea. REVIEW OF SYSTEMS: Loud snoring, episodes of stopped breathing during sleep, multiple awakenings from sleep. PHYSICAL EXAM: 56 -year-old gentleman without distress. BP 153/100, HR 69, RR 16, height 5 feet 7-1/3 inches, weight 171 pounds, body mass index 26.5, temperature 97.7, oxygen saturation at room air 98%. Oropharynx: Low position of soft palate, Mallampati 3. Neck is 15 inches in circumference. Neck: Supple, no JVD. Thyroid is not palpable. LUNGS: Clear to percussion and to auscultation. Good air exchange. No wheezing or rhonchi. HEART: S1, S2 regular. No murmurs, gallops, or rubs. ABDOMEN: Soft and nontender. Bowel sounds are present. No organomegaly appreciated. EXTREMITIES: No clubbing or cyanosis. DYE RANGE OPERATOR CLOTH: Awake, alert, and oriented X3. Cranial nerves 2 to 7 intact. There is no fasciculation or atrophy. noted. No focal deficits observed. IMPRESSION: 1. Loud snoring, episodes of stopped breathing during sleep, low position of soft palate, Mallampati 3, sleepiness. [place] Sleepiness Scale increased to 12, obstructive sleep apnea-hypopnea syndrome. 2. Hyperlipidemia. 3. History of carpal tunnel syndrome status post surgical treatment. PLAN: 1. Home sleep apnea test for evaluation of patient breathing during sleep. 2. CPAP/BiPAP titration if sleep study confirms obstructive sleep apnea-hypopnea syndrome. 3. Preferable position during sleep on the side. 4. No driving if patient feels any sleepiness. 5. I will see patient for follow up visit to explain results of testing and following plan. German Sher MD, PhD, FAASM Diplomat of [employer] Sleep Medicine Board of [employer] Fire Alarm Installer of [facility] [place] MMODL / SCOOTERN: [id number] /
== END | disposition home or self-care (01) ==
LOC: SLEEP 16:20
PROVIDERS: ATTEND Internal Medicine
DX: G47.33 Obstructive sleep apnea (adult) (pediatric) (principal); E78.5 Hyperlipidemia, unspecified; Z87.39 Personal history of other diseases of the musculoskeletal system and connective tissue
CPT/HCPCS: 99202

== ENCOUNTER → 2022-04-16 | Outpatient (CLI) | payer BC ==
--- NOTE | 2022-04-16 22:44 | MR ---
EXAMINATION TYPE: MR brain wo/w con DATE OF EXAM: 04/16/2022 COMPARISON: CT brain November 28, 2019 HISTORY: Memory issues, numbness of feet/legs TECHNIQUE: Multiplanar, multisequence images of the brain and brainstem is performed without and with IV contras t, utilizing 7.5 mL intravenous Gadavist . FINDINGS: Diffusion weighted images demonstrate no evidence of a recent infarct or other diffusion ab normality. Moderate ventricular and sulcal prominence with interval degenerative progression from [address] Occasional scattered small focus of T2 hyperintensity throughout the white matter bilaterally g reater on the left. Severe cerebellar atrophy is redemonstrated. T2 Star weighted images show no susp icious intraparenchymal blood product. Midline structures demonstrate normal morphology. The craniocervical junction appears within normal limits. Post contrast images demonstrate no abnormal enhancement. The dural venous sinuses appear pa tent. The visualized sinuses are clear and the globes are intact. IMPRESSION: Moderate diffuse cerebral atrophy with interval degenerative progression from 2018 study. Severe bilateral cerebellar atrophy is noted. No MRI evidence for recent infarct. No abnormal enhanc ement. Mild to minimal nonspecific white matter changes favor product of chronic small vessel ischemi a.
== END | disposition home or self-care (01) ==
LOC: RADMRIMAIN 21:30
PROVIDERS: ATTEND Psychiatry & Neurology Neurology
DX: G31.9 Degenerative disease of nervous system, unspecified (principal); R90.82 White matter disease, unspecified; I67.82 Cerebral ischemia; R41.3 Other amnesia
CPT/HCPCS: 70553; A9585

== ENCOUNTER → 2022-04-16 | Outpatient (CLI) | payer BC ==
--- NOTE | 2022-04-16 16:02 | P.PN ---
Subjective DATE: 04/16/2022 FOLLOW UP VISIT. Patient with obstructive sleep apnea hypopnea syndrome return to sleep center for follow-up visit. Recently patient had sleep study which documented obstructive sleep apnea hypopnea syndrome. Patient was initiated on PAP therapy and today is first visit after treatment was started. I discuss with patient and family results of sleep studies in details Patient was able to use PAP equipment every night for the whole night. Patient has redness on his nose secondary to mask, has condensation of water in the tube. [place] sleepiness scale is 13. I checked information from PAP unit. PAP unit pressure 5-13, average 12.8 cm H2O. Usage is 80 % for more then 4 hours, average 7 hours per night. Leak is 10.0 l/m, which is in acceptable range. Apnea Hypopnea Index is 3.5, which is normal. MEDICATIONS:1. Metoprolol 2. Atorvastatin During physical exam: GENERAL: A pleasant patient without any distress. VITAL SIGNS: BP 154/92, HR 67, RR 14, weight 168.0, temperature 97.2, oxygen saturation at room air 99%. HEENT: PERRLA, EOMI.low position of soft palate, Mallapati 3. NECK: Supple. No JVD. LUNGS: Clear to percussion and to auscultation. Good air exchange. No wheezing or rhonchi. HEART: S1, S2 regular. ABDOMEN: Soft and nontender.[] EXTREMITIES: No clubbing or cyanosis. PHYSICIAN INDUSTRIAL: Awake, alert, and oriented x3. No focal deficit. Impressions: 1. Obstructive sleep apnea-hypopnea syndrome in severe range. Patient demonstrated compliance with treatment, benefiting from treatment. 2. Hyperlipidemia. 3. History of carpal tunnel syndrome, status post surgical treatment. Plan: 1. Continue using PAP equipment every night for the whole night. I teach to patient and family about adjustment of temperature and indicated humidifier and indicated tube. Temperature in the heated tube was adjusted up to 82. 2. To change air filter at least 1-2 times per month. 3. PAP unit should stay lower then position of the head. 4. Advised patient to remove all remaining water from humidifier canister daily and make it dry after each usage. Refill canister with fresh distilled water before each usage. 5. Sleep hygiene with regular time in bed for at least 8 hours. 6. Precautions related to driving. No driving if feel any sleepiness. 7. I will maintain prescription for PAP supplies including mask, tube, filters. 8. Follow up visit in 6 months or earlier if patient has any problems. 9. Watching weight. Thank you very much for allowing me to participate in the management of your patient. German Sher MD, PhD, FAASM. Diplomat of [place] [employer], Sleep Medicine Board by [place] [employer] Reel Cart Operator of [facility] [place]
== END ==
LOC: SLEEP 14:37
PROVIDERS: ATTEND Internal Medicine
DX: G47.33 Obstructive sleep apnea (adult) (pediatric) (principal); Z99.89 Dependence on other enabling machines and devices; E78.5 Hyperlipidemia, unspecified; Z98.890 Other specified postprocedural states
CPT/HCPCS: 99212

== ENCOUNTER → 2022-11-05 | Outpatient (CLI) | payer BC ==
--- NOTE | 2022-11-05 14:36 | P.PN ---
Subjective DATE: 11/05/2022 FOLLOW UP VISIT. Patient with obstructive sleep apnea hypopnea syndrome return to sleep center for follow-up visit. Information from previous visit have been reviewed. Patient is using PAP equipment every night for the whole night, getting PAP supplies in time. According to patient she sleeps well. The patient does not have significant problems with the mask, PAP unit and humidification. [place] sleepiness scale is borderline 10. I checked information from PAP unit. PAP unit pressure 5-13, average 8.9 cm H2O. Usage is 83% and 80 % for more then 4 hours, average 6.5 hours per night. Leak significantly increased to 45.2 l/m, during previous visit it was 10.0 L/m. Apnea Hypopnea Index increased to 16.3, during previous visit it was 3.5. MEDICATIONS:1. Metoprolol 25 mg once a day 2. Atorvastatin 20 mg once a day During physical exam: GENERAL: A pleasant patient without any distress. VITAL SIGNS: BP 145/88, HR 51, RR 20, weight 172.4, temperature 97.6, oxygen saturation at room air 98 % . HEENT: PERRLA, EOMI.low position of soft palate, Mallapati 3. NECK: Supple. No JVD. LUNGS: Clear to percussion and to auscultation. Good air exchange. No wheezing or rhonchi. HEART: S1, S2 regular. ABDOMEN: Soft and nontender. EXTREMITIES: No clubbing or cyanosis. FAST FOOD ATTENDANT: Awake, alert, and oriented x3. No focal deficit. Impressions: 1. Obstructive sleep apnea-hypopnea syndrome. Patient demonstrated good compliance with treatment, benefiting from treatment. Apnea-hypopnea index increased comparing with the previous visit. Mask leak also significantly increased. 2. Hyperlipidemia. 3. History of carpal tunnel syndrome, status post surgical treatment. 4. Blood pressure slightly increased in the office. Plan: 1. Continue using PAP equipment every night for the whole night. 2. To replace CPAP mask. 3. Patient will use additionally chinstrap to prevent leak. 4. Advised patient to remove all remaining water from humidifier canister daily and make it dry after each usage. Refill canister with fresh distilled water before each usage. 5. Sleep hygiene with regular time in bed for at least 8 hours. 6. Precautions related to driving. No driving if feel any sleepiness. 7. I will maintain prescription for PAP supplies including mask, tube, filters. 8. Watching weight. 9. Follow up visit in 2-3 months or earlier if patient has any problems. Thank you very much for allowing me to participate in the management of your patient. German Sher MD, PhD, FAASM. Diplomat of [place] [employer], Sleep Medicine Board by [place] [employer] Tool Grinder Operator External of [facility] [place]
== END ==
LOC: 3 N SLEEP 13:14
PROVIDERS: ATTEND Internal Medicine
DX: E78.5 Hyperlipidemia, unspecified (principal); G47.33 Obstructive sleep apnea (adult) (pediatric); G56.00 Carpal tunnel syndrome, unspecified upper limb; Z98.890 Other specified postprocedural states; Z99.89 Dependence on other enabling machines and devices; Z79.899 Other long term (current) drug therapy
CPT/HCPCS: 99212

== ENCOUNTER 2023-02-07 17:03 | Emergency (ER) | payer OTHER, BC ==
[2023-02-07] MEDS ORDERED: SODIUM CHLORIDE 0.9% 1,000 ML IV ONE (17:33)
[2023-02-07] MEDS ORDERED: LORazepam 2 MG/ML INJ IV STA (17:51)
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
[2023-02-07 18:28] LABS: Partial Thromboplastin Time 22.7 sec (22.0-30.0); Prothrombin Time 10.1 sec (9.0-12.0)
[2023-02-07 18:30] LABS: ALT 22 U/L (4-49); African American GFR (CKD) >90 (>60 ml/min/1.73 sqM); Albumin 4.1 g/dL (3.5-5.0); Anion Gap 8 mmol/L; Blood Urea Nitrogen 17 mg/dL (9-20); Calcium 8.8 mg/dL (8.4-10.2); Carbon Dioxide 25 mmol/L (22-30); Chloride 104 mmol/L (98-107); Glucose 92 mg/dL (74-99); Non-African American GFR(CKD) >90 (>60 ml/min/1.73 sqM); Sodium 137 mmol/L (137-145); Total Bilirubin 0.8 mg/dL (0.2-1.3); Total Protein 7.3 g/dL (6.3-8.2)
[2023-02-07 18:31] LABS: Basophils % (A) 0 %; Eosinophils # (A) 0.2 k/uL (0-0.7); Eosinophils % (A) 2 %; HCT 42.7 % (39.0-53.0); HGB 14.7 gm/dL (13.0-17.5); Lymphocytes # (A) 1.8 k/uL (1.0-4.8); Lymphocytes % (A) 23 %; MCH 32.2 pg (25.0-35.0); MCHC 34.4 g/dL (31.0-37.0); MCV 93.8 fL (80.0-100.0); Mean Platelet Volume 7.4; Monocytes # (A) 0.5 k/uL (0-1.0); Monocytes % (A) 7 %; Neutrophils # (A) 5.2 k/uL (1.3-7.7); Neutrophils % (A) 67 %; Platelet Count 203 k/uL (150-450); RBC 4.55 m/uL (4.30-5.90); RDW 12.3 % (11.5-15.5); WBC 7.8 k/uL (3.8-10.6)
[2023-02-07 18:33] LABS: AST 33 U/L (17-59); Alkaline Phosphatase 64 U/L (38-126); Potassium 4.2 mmol/L (3.5-5.1)
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
[2023-02-07 20:07] VITALS: BP 148/97; PULSE 72; RESP 18; TEMP 98
== END 2023-02-07 20:03 | disposition home or self-care (01) ==
LOC: EC 17:03
DX: Z04.1 Encounter for examination and observation following transport accident (principal); R00.1 Bradycardia, unspecified; I10 Essential (primary) hypertension; Z79.899 Other long term (current) drug therapy; V49.40XA Driver injured in collision with unspecified motor vehicles in traffic accident, initial encounter
CPT/HCPCS: 36415; 93005; 86900; 86901; 80053; 85025; 85610; 85730; 86850; 72125; 70450; 71260; 74177; 99285; 96374; J2060; Q9967

== ENCOUNTER → 2023-02-11 | Outpatient (CLI) | payer BC ==
--- NOTE | 2023-02-11 13:59 | P.PN ---
Subjective DATE: 02/11/2023 FOLLOW UP VISIT. Patient with obstructive sleep apnea hypopnea syndrome return to sleep center for follow-up visit. Information from previous visit have been reviewed. Patient is using PAP equipment every night for the whole night, getting PAP supplies in time. Patient has occasional snoring. [place] sleepiness scale is 11. I checked information from PAP unit. PAP unit pressure 5-13, average 11.1 cm H2O. Usage is 87% and 70 % for more then 4 hours, average 5.75 hours per night. Leak is 30.2 l/m, which is increased, but better during previous visit when it was 45 . Apnea-hypopnea index is 13.5, which is increased, but better than during previous visit when it was 16.3. MEDICATIONS:1. Metoprolol 25 mg once a day 2. Atorvastatin 20 mg once a day During physical exam: GENERAL: A pleasant patient without any distress. VITAL SIGNS: BP 163/91, HR 65, RR 16, weight 167.8, temperature 97.9, oxygen saturation at room air 97 % . HEENT: PERRLA, EOMI.low position of soft palate, Mallapati 3. NECK: Supple. No JVD. LUNGS: Clear to percussion and to auscultation. Good air exchange. No wheezing or rhonchi. HEART: S1, S2 regular. ABDOMEN: Soft and nontender.[] EXTREMITIES: No clubbing or cyanosis. ASPHALT PLANT OPERATOR: Awake, alert, and oriented x3. No focal deficit. I increased level of pressure to the range of 5-14 cm of water. Impressions: 1. Obstructive sleep apnea-hypopnea syndrome. Patient demonstrated good compliance with treatment, benefiting from treatment. 2. Hyperlipidemia. 3. Hypertension. 4. Status post surgical treatment for carpal tunnel syndrome. Plan: 1. Continue using PAP equipment every night for the whole night. 2. To change air filter at least 1-2 times per month. 3. PAP unit should stay lower then position of the head. 4. Advised patient to remove all remaining water from humidifier canister daily and make it dry after each usage. Refill canister with fresh distilled water before each usage. 5. Sleep hygiene with regular time in bed for at least 8 hours. 6. Precautions related to driving. No driving if feel any sleepiness. 7. I will maintain prescription for PAP supplies including mask, tube, filters. 8. Follow up visit in 3 months or earlier if patient has any problems. 9. Watching weight. Thank you very much for allowing me to participate in the management of your patient. German Sher MD, PhD, FAASM. Diplomat of [employer], Sleep Medicine Board by [employer] Wire Fence Builder of [facility] [place]
== END ==
LOC: 3 N SLEEP 13:05
PROVIDERS: ATTEND Internal Medicine
DX: G47.33 Obstructive sleep apnea (adult) (pediatric) (principal); E78.5 Hyperlipidemia, unspecified; I10 Essential (primary) hypertension; G56.00 Carpal tunnel syndrome, unspecified upper limb; Z98.890 Other specified postprocedural states; Z79.899 Other long term (current) drug therapy; Z99.89 Dependence on other enabling machines and devices
CPT/HCPCS: 99212

== ENCOUNTER → 2023-05-14 | Outpatient (CLI) | payer BC ==
--- NOTE | 2023-05-14 12:31 | P.PN ---
Subjective DATE: 05/14/2023 FOLLOW UP VISIT. Patient with obstructive sleep apnea hypopnea syndrome return to sleep center for follow-up visit. Information from previous visit have been reviewed. Patient is using PAP equipment every night for the whole night, getting PAP supplies in time. The patient does not have significant problems with the mask, PAP unit and humidification. [place] sleepiness scale is increased to 16. I checked information from PAP unit. PAP unit pressure 5-14, average 12.5 cm H2O. Usage is 80 % for more then 4 hours, average 6.5 hours per night. Leak is increased to 31.4 l/m, which is in acceptable range. Apnea Hypopnea Index is 6.2, which is slightly above normal, significant improvements comparing to the previous visit when it was 13.5 and pressure was increased. MEDICATIONS:1. Metoprolol 25 mg once a day 2. Carbidopa-levodopa 25 mg twice a day 3. Memantine 10 mg once a day During physical exam: GENERAL: A pleasant patient without any distress. VITAL SIGNS: BP 159/93 HR 60, RR 12 , weight 182, temperature 98.1, oxygen saturation at room air 97 % . HEENT: PERRLA, EOMI.low position of soft palate, Mallapati 3 . NECK: Supple. No JVD. LUNGS: Clear to percussion and to auscultation. Good air exchange. No wheezing or rhonchi. HEART: S1, S2 regular. ABDOMEN: Soft and nontender.[] EXTREMITIES: No clubbing or cyanosis. DIGITAL EDITOR: Awake, alert, and oriented x3. No focal deficit. Impressions: 1. Obstructive sleep apnea-hypopnea syndrome. Patient demonstrated good compliance with treatment, benefiting from treatment. 2. Hypertension 3. Hyperlipidemia. 4. Status post surgical treatment for carpal tunnel syndrome. I changed pressure in AutoPAP unit to the range 5-15 cm of water. Plan: 1. Continue using PAP equipment every night for the whole night. 2. To change air filter at least 1-2 times per month. 3. PAP unit should stay lower then position of the head. 4. Advised patient to remove all remaining water from humidifier canister daily and make it dry after each usage. Refill canister with fresh distilled water before each usage. 5. Sleep hygiene with regular time in bed for at least 8 hours. 6. Precautions related to driving. No driving if feel any sleepiness. 7. I will maintain prescription for PAP supplies including mask, tube, filters. 8. Follow up visit in 6 months or earlier if patient has any problems. 9. Watching weight. Thank you very much for allowing me to participate in the management of your patient. German Sher MD, PhD, FAASM. Diplomat of [place] [employer], Sleep Medicine Board by [employer] Field Coil Winder of [facility] [place]
== END ==
LOC: 3 N SLEEP 10:46
PROVIDERS: ATTEND Internal Medicine
DX: G47.33 Obstructive sleep apnea (adult) (pediatric) (principal); E78.5 Hyperlipidemia, unspecified; I10 Essential (primary) hypertension; Z98.890 Other specified postprocedural states; Z99.89 Dependence on other enabling machines and devices; Z79.899 Other long term (current) drug therapy; Z79.82 Long term (current) use of aspirin
CPT/HCPCS: 99212

== ENCOUNTER → 2023-12-31 | Outpatient (CLI) | payer BC ==
[2023-12-31 10:48] VITALS: BP 158/99; PULSE 83; RESP 16; TEMP 98.5
--- NOTE | 2023-12-31 11:06 | P.PROGSL ---
Subjective DATE: 12/31/2023 FOLLOW UP VISIT. Patient with obstructive sleep apnea hypopnea syndrome return to sleep center for follow-up visit. Information from previous visit have been reviewed. Patient sleeps well, no snoring, getting his CPAP supplies in time. Patient is using PAP equipment every night for the whole night, getting PAP supplies in time. The patient does not have significant problems with the mask, PAP unit and humidification. [place] sleepiness scale is slightly increased to 12. I checked information from PAP unit. PAP unit pressure 5-15, average 14.4 cm H2O. Usage is 80% for more then 4 hours, average 5 hours per night. Leak is slightly increased to 30 l/m. Apnea Hypopnea Index is 5.8, which is borderline. MEDICATIONS have been reviewed, please see below. During physical exam: GENERAL: A pleasant patient without any distress. VITAL SIGNS: Please see below, weight is 177.4 lbs. HEENT: PERRLA, EOMI.low position of soft palate, Mallapati 3. NECK: Supple. No JVD. LUNGS: Clear to percussion and to auscultation. Good air exchange. No wheezing or rhonchi. HEART: S1, S2 regular. ABDOMEN: Soft and nontender.[] EXTREMITIES: No clubbing or cyanosis. WHEEL OF FORTUNE DEALER: Awake, alert, and oriented x3. No focal deficit. Impressions: 1. Obstructive sleep apnea-hypopnea syndrome. Patient demonstrated good compliance with treatment, benefiting from treatment. 2. Hypertension. 3. Hyperlipidemia. 4. Status post surgery for carpal tunnel syndrome on the left side. Plan: 1. Continue using PAP equipment every night for the whole night. 2. Sleep hygiene with regular time in bed for at least 7.5-8 hours 3. PAP unit should stay lower then position of the head. 4. Advised patient to remove all remaining water from humidifier canister daily and make it dry after each usage. Refill canister with fresh distilled water before each usage. 5. Watching weight. 6. Precautions related to driving. No driving if feel any sleepiness. 7. I will maintain prescription for PAP supplies including mask, tube, filters. 8. Follow up visit in 6 months or earlier if patient has any problems. Thank you very much for allowing me to participate in the management of your patient. German Sher MD, PhD, FAASM. Diplomat of [place] [employer], Sleep Medicine Board by [employer] Procurement Director of [facility] [place] Objective - Vital Signs Vital Signs: Vital Signs Temp 98.5 F 12/31/23 10:47 Pulse 83 12/31/23 10:47 Resp 16 12/31/23 10:47 BP 158/99 12/31/23 10:47 Pulse Ox 97 12/31/23 10:47 FiO2 Intake & Output 12/30/23 12/31/23 12/31/23 18:59 06:59 18:59 Weight 80.286 kg Home Medications: Home Medications Medication Instructions Recorded Confirmed Type Metoprolol Tartrate [Lopressor] 12.5 mg PO BID 09/25/15 12/31/23 History Ibuprofen [Motrin] 800 mg PO Q6HR #30 tab 02/07/23 12/31/23 Rx Carbidopa-Levodopa 10-100 mg 25 mg PO TID 12/31/23 12/31/23 History [Sinemet 10-100 mg] Memantine [Namenda] 25 mg PO DAILY 12/31/23 12/31/23 History
== END ==
LOC: 3 N SLEEP 10:18
PROVIDERS: ATTEND Internal Medicine
CPT/HCPCS: 99212

== ENCOUNTER 2024-04-23 07:32 | Emergency (ER) | payer BC ==
[2024-04-23 07:38] LABS: Glucose,Whole Blood 147 mg/dL (70-110)
[2024-04-23 07:44] LABS: Basophils # (A) 0.1 k/uL (0-0.2); Basophils % (A) 1 %; Eosinophils # (A) 0.2 k/uL (0-0.7); Eosinophils % (A) 3 %; HCT 46.1 % (39.0-53.0); HGB 15.4 gm/dL (13.0-17.5); Lymphocytes # (A) 2.3 k/uL (1.0-4.8); Lymphocytes % (A) 34 %; MCH 31.4 pg (25.0-35.0); MCHC 33.5 g/dL (31.0-37.0); MCV 93.7 fL (80.0-100.0); Mean Platelet Volume 6.8; Monocytes # (A) 0.5 k/uL (0-1.0); Monocytes % (A) 7 %; Neutrophils # (A) 3.8 k/uL (1.3-7.7); Neutrophils % (A) 54 %; Platelet Count 217 k/uL (150-450); RBC 4.91 m/uL (4.30-5.90); RDW 13.1 % (11.5-15.5); WBC 6.9 k/uL (3.8-10.6)
--- NOTE | 2024-04-23 07:52 | ED ---
General Adult HPI - General Stated complaint: Rule out stroke Time Seen by Provider: 04/23/24 07:32 Source: patient, RN notes reviewed, old records reviewed - History of Present Illness Initial comments: This is a 58-year-old male who has a past medical history significant for dementia and Parkinson's. Patient is alert and oriented x 2 at baseline. Cording to the paramedics they stated he fell yesterday and that is why he has a cut on the lateral aspect of his left eyebrow but we found out later from the son that he fell this morning. The story the son gives is that the father was normal and speaking with the normally this morning he was a unwitnessed fall the was right there turned around and helped him up. According to the son he was normal for a few minutes and then all of a sudden he started not making sense and his speech was kind of started and that was definitely abnormal. Patient himself does not complain of a headache or neck pain patient denies any numbness or weakness but he is significantly demented and currently he states he is 30 years old which his son is stating it is absolutely abnormal that he does not know his age. Patient denies any chest pain or any other pain. - Related Data Home Medications Medication Instructions Recorded Confirmed Metoprolol Tartrate [Lopressor] 12.5 mg PO BID 09/25/15 12/31/23 Carbidopa-Levodopa 10-100 mg 25 mg PO TID 12/31/23 12/31/23 [Sinemet 10-100 mg] Memantine [Namenda] 25 mg PO DAILY 12/31/23 12/31/23 Previous Rx's Medication Instructions Recorded Ibuprofen [Motrin] 800 mg PO Q6HR #30 tab 02/07/23 Allergies Allergy/AdvReac Type Severity Reaction Status Date / Time No Known Allergies Allergy Verified 04/23/24 08:01 Review of Systems ROS Statement: Those systems with pertinent positive or pertinent negative responses have been documented in the HPI. ROS Other: All systems not noted in ROS Statement are negative. Past Medical History Past Medical History: Chest Pain / Angina, Hyperlipidemia, Hypertension, Memory Impairment Additional Past Medical History / Comment(s): 2015 -stress test-neg, sleep apnea-USES A CPAP MACHINE, KIDNEY STONE-passed on own, BEGINNINGS OF CATARACT lt eye, hx broken rt foot-has plate. History of Any Multi-Drug Resistant Organisms: None Reported Past Surgical History: Hernia Repair Additional Past Surgical History / Comment(s): LT INGUINAL HERNIA REPAIR, TUBES IN EARS,VASECTOMY, rt foot sx has plate. Past Anesthesia/Blood Transfusion Reactions: Motion Sickness Additional Past Anesthesia/Blood Transfusion Reaction / Comment(s): motion sickness if on a boat. Past Psychological History: No Psychological Hx Reported Additional Psychological History / Comment(s): pt lives with his , is independant. 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 Patient is nontoxic and well- hydrated and is in no acute distress. ENT: Neck is soft and supple. No significant lymphadenopathy is noted. Oropharynx is clear. Moist mucous membranes. Neck has full range of motion without eliciting any pain. EYES: The sclera were anicteric and conjunctiva were pink and moist. Extraocular movements were intact and pupils were equal round and reactive to light. Eyelids were unremarkable. PULMONARY: Unlabored respirations. Good breath sounds bilaterally. No audible rales rhonchi or wheezing was noted. CARDIOVASCULAR: There is a regular rate and rhythm without any murmurs gallops or rubs. ABDOMEN: Soft and nontender with normal bowel sounds. SKIN: Patient has a 3 cm laceration to the lateral aspect of his left eyebrow. NEUROLOGIC: Patient is alert and oriented x 1. Cranial nerves II through XII are grossly intact. Motor and sensory are also intact. Speech is stuttering but not slurred and patient does not know his own age. Symmetrical smile. Patient also thinks his right hand is my hand. Patient currently has an NIH of 9. MUSCULOSKELETAL: Normal extremities with adequate strength and full range of motion. LYMPHATICS: No significant lymphadenopathy is noted PSYCHIATRIC: Normal psychiatric evaluation. Course Vital Signs 04/23/24 04/23/24 04/23/24 07:32 07:35 07:50 Temperature 97.9 F 97.7 F 97.9 F Pulse Rate 76 74 77 Respiratory 16 16 15 Rate Blood Pressure 179/114 180/103 164/96 O2 Sat by Pulse 94 L 96 95 Oximetry 04/23/24 04/23/24 04/23/24 08:05 08:20 08:35 Temperature 97.7 F 97.7 F 97.9 F Pulse Rate 75 74 77 Respiratory 16 16 16 Rate Blood Pressure 151/99 153/94 147/94 O2 Sat by Pulse 96 95 95 Oximetry Procedures - Laceration Laceration #1 Consent Obtained: verbal consent Indication: laceration Site: face Description: linear Size of Sutures: other (Dermabond) Patient Tolerated Procedure: well Medical Decision Making - Medical Decision Making EKG is interpreted by myself read EKG shows a sinus rhythm at 69 bpm [place] interval is 210 QRS is 122 QT interval is 398 QTc is 418. Patient's EKG shows no ST segment elevation or depression Was pt. sent in by a medical professional or institution (JAIME Lynn, TIN ASSORTER, urgent care, hospital, or [place] health [place] facility...) When possible be specific @ -No Did you speak to anyone other than the patient for history (EMS, parent, family, police, friend...)? What history was obtained from this source @ -No Did you review nursing and triage notes (agree or disagree)? Why? @ -I reviewed and agree with nursing and triage notes Were old charts reviewed (outside hosp., previous admission, EMS record, old EK G, old radiological studies, urgent care reports/EKG's, [place] health care facility records)? Report findings @ -No old charts were reviewed Differential Diagnosis? @ -Differential CVA Ischemic stroke, hemorrhagic stroke, brain tumor, atypical migraine, Wernicke's encephalopathy, seizure, multiple sclerosis, meningitis, encephalitis, hypoglycemia, Guillain-Campoverde, electrolytes disturbance, myasthenia gravis.... This is not meant to be an all-inclusive list EKG interpreted by me (3pts min.). @ -As above X-rays interpreted by me (1pt min.). @ -Chest x-ray shows no acute abnormality CT interpreted by me (1pt min.). @ -CT of the brain shows no acute normality. CT angiogram shows no acute abnormality. U/S interpreted by me (1pt. min.). @ -None done What testing was considered but not performed or refused? (CT, X-rays, U/S, labs)? Why? @ -None What meds were considered but not given or refused? Why? @ -None Did you discuss the management of the patient with other professionals (professionals i.e. Dr., PA, TIN ASSORTER, lab, RT, psych nurse, psychosocial rehabilitation counselor, j2ee programmer, teacher, photographic intelligence officer, special education case manager)? Give summary @ -I spoke with Dr. Hagen he did not want any TNKase because patient had trauma this morning. Also patient's NIH went from 9-3. On initial report from EMS patient was said to have fallen yesterday morning and not this morning but when son came he did clarify that but at this time patient already had CAT scans done. Was smoking cessation discussed for >3mins.? @ -No Was critical care preformed (if so, how long)? @ -35 minutes Were there social determinants of health that impacted care today? How? (Homelessness, low income, unemployed, alcoholism, drug addiction, transportation, low edu. Level, literacy, decrease access to med. care, retirement, rehab)? @ -No Was there de-escalation of care discussed even if they declined (Discuss DNR or withdrawal of care, Hospice)? DNR status @ -No What co-morbidities impacted this encounter? (DM, HTN, Smoking, COPD, CAD, Cancer, CVA, ARF, Chemo, Hep., AIDS, mental health diagnosis, sleep apnea, morbid obesity)? @ -None Was patient admitted / discharged? Hospital course, mention meds given and route, prescriptions, significant lab abnormalities, going to OR and other pertinent info. @ -Patient did improve his symptoms. We have no neuro coverage here and so though the CAT scans are both negative patient will be transferred to [facility] for neuro coverage and further evaluation. Undiagnosed new problem with uncertain prognosis? @ -No Drug Therapy requiring intensive monitoring for toxicity (Heparin, Nitro, Insulin, Cardizem)? @ -No Were any procedures done? @ -No Diagnosis/symptom? @ -CVA Acute, or Chronic, or Acute on Chronic? @ -Acute Uncomplicated (without systemic symptoms) or Complicated (systemic symptoms)? @ -Complicated Side effects of treatment? @ -No Exacerbation, Progression, or Severe Exacerbation? @ -No Poses a threat to life or bodily function? How? (Chest pain, USA, CT, pneumonia, PE, COPD, DKA, ARF, appy, cholecystitis, CVA, Diverticulitis, Homicidal, Suicidal, threat to staff... and all critical care pts) @ -Yes this could lead to a further stroke and morbidity and mortality. Diagnosis/symptom? @ -Laceration forehead Acute, or Chronic, or Acute on Chronic? @ -Default Uncomplicated (without systemic symptoms) or Complicated (systemic symptoms)? @ -Acute uncomplicated Side effects of treatment? @ -None Exacerbation, Progression, or Severe Exacerbation] @ -No Poses a threat to life or bodily function? @ -No - Lab Data Result diagrams: 04/23/24 07:35 04/23/24 07:35 Lab Results 04/23/24 04/23/24 04/23/24 Range/Units 07:35 07:35 07:35 WBC 6.9 (3.8-10.6) k/uL RBC 4.91 (4.30-5.90) m/uL Hgb 15.4 (13.0-17.5) gm/dL Hct 46.1 (39.0-53.0) % MCV 93.7 (80.0-100.0) fL MCH 31.4 (25.0-35.0) pg MCHC 33.5 (31.0-37.0) g/dL RDW 13.1 (11.5-15.5) % Plt Count 217 (150-450) k/uL MPV 6.8 Neutrophils % 54 % Lymphocytes % 34 % Monocytes % 7 % Eosinophils % 3 % Basophils % 1 % Neutrophils # 3.8 (1.3-7.7) k/uL Lymphocytes # 2.3 (1.0-4.8) k/uL Monocytes # 0.5 (0-1.0) k/uL Eosinophils # 0.2 (0-0.7) k/uL Basophils # 0.1 (0-0.2) k/uL PT 10.7 (10.0-12.5) sec INR 1.0 (<1.2) APTT 23.6 (22.0-30.0) sec Sodium 137 (137-145) mmol/L Potassium 4.1 (3.5-5.1) mmol/L Chloride 102 (98-107) mmol/L Carbon Dioxide 27 (22-30) mmol/L Anion Gap 8 mmol/L BUN 19 (9-20) mg/dL Creatinine 1.16 (0.66-1.25) mg/dL Est GFR (CKD-EPI)AfAm 80 (>60 ml/min/1.73 sqM) Est GFR (CKD-EPI)NonAf 70 (>60 ml/min/1.73 sqM) Glucose 135 H (74-99) mg/dL POC Glucose (mg/dL) (70-110) mg/dL POC Glu Ratoprinter ID Calcium 9.3 (8.4-10.2) mg/dL Total Bilirubin 0.8 (0.2-1.3) mg/dL AST 20 (17-59) U/L ALT 9 (4-49) U/L Alkaline Phosphatase 75 (38-126) U/L Creatine Kinase 33 L (55-170) U/L Troponin I (0.000-0.034) ng/mL Total Protein 7.4 (6.3-8.2) g/dL Albumin 4.3 (3.5-5.0) g/dL 04/23/24 04/23/24 Range/Units 07:35 07:37 WBC (3.8-10.6) k/uL RBC (4.30-5.90) m/uL Hgb (13.0-17.5) gm/dL Hct (39.0-53.0) % MCV (80.0-100.0) fL MCH (25.0-35.0) pg MCHC (31.0-37.0) g/dL RDW (11.5-15.5) % Plt Count (150-450) k/uL MPV Neutrophils % % Lymphocytes % % Monocytes % % Eosinophils % % Basophils % % Neutrophils # (1.3-7.7) k/uL Lymphocytes # (1.0-4.8) k/uL Monocytes # (0-1.0) k/uL Eosinophils # (0-0.7) k/uL Basophils # (0-0.2) k/uL PT (10.0-12.5) sec INR (<1.2) APTT (22.0-30.0) sec Sodium (137-145) mmol/L Potassium (3.5-5.1) mmol/L Chloride (98-107) mmol/L Carbon Dioxide (22-30) mmol/L Anion Gap mmol/L BUN (9-20) mg/dL Creatinine (0.66-1.25) mg/dL Est GFR (CKD-EPI)AfAm (>60 ml/min/1.73 sqM) Est GFR (CKD-EPI)NonAf (>60 ml/min/1.73 sqM) Glucose (74-99) mg/dL POC Glucose (mg/dL) 147 H (70-110) mg/dL POC Glu Ratoprinter ID Romelia Khan Calcium (8.4-10.2) mg/dL Total Bilirubin (0.2-1.3) mg/dL AST (17-59) U/L ALT (4-49) U/L Alkaline Phosphatase (38-126) U/L Creatine Kinase (55-170) U/L Troponin I <0.012 (0.000-0.034) ng/mL Total Protein (6.3-8.2) g/dL Albumin (3.5-5.0) g/dL Disposition Clinical Impression: Fall, CVA (cerebral vascular accident), Laceration of forehead Disposition: OTHER INSTITUTION NOT DEFINED Referrals: Omari Kirby DO [Primary Care Provider] - 1-2 days Time of Disposition: 09:00 - Out of Hospital Transfer - Req. Specs Out of Hospital Transfer - Requested Specifics: Other Emergency Center ([facility])
--- NOTE | 2024-04-23 07:53 | CT ---
EXAMINATION TYPE: CT brain wo con DATE OF EXAM: 04/23/2024 7:50 AM COMPARISON: 02/07/2023. CLINICAL INDICATION: Male, 58 years old with history of Neuro deficit, acute, stroke suspected, Synco pe, confusion, cut over Lt eye TECHNIQUE: Brain: Axial CT images of the brain were obtained with coronal and sagittal reformats created and rev iewed. Contrast used: None. Oral contrast used: None. CT DLP: 1085 mGycm, Automated exposure control for dose reduction was used. FINDINGS: Brain: Extra-axial spaces: No abnormal extra-axial fluid collections. Ventricular system: Dilatation in proportion to cerebral atrophy. Cerebral parenchyma: Cerebral atrophy. No acute intraparenchymal hemorrhage or mass effect. The florez -white junction is well differentiated. Scattered hypoattenuating areas are seen within the white mat ter. Cerebellum: Cerebellar atrophy Mass effect: No evidence of midline shift. Intracranial vasculature: unremarkable Soft tissues: Normal. Calvarium/osseous structures: No depressed skull fracture. Paranasal sinuses and mastoid air cells: Mild scattered paranasal sinus disease. Visualized orbits: Orbital contents are intact. IMPRESSION: 1. No acute intracranial process. 2. Nonspecific white matter changes, likely secondary to chronic small vessel ischemic disease. [facility], , 04/23/2024 7:51 AM
[2024-04-23 07:54] LABS: Partial Thromboplastin Time 23.6 sec (22.0-30.0); Prothrombin Time 10.7 sec (10.0-12.5)
[2024-04-23 07:57] LABS: ALT 9 U/L (4-49); AST 20 U/L (17-59); African American GFR (CKD) 80 (>60 ml/min/1.73 sqM); Albumin 4.3 g/dL (3.5-5.0); Alkaline Phosphatase 75 U/L (38-126); Anion Gap 8 mmol/L; Blood Urea Nitrogen 19 mg/dL (9-20); Calcium 9.3 mg/dL (8.4-10.2); Carbon Dioxide 27 mmol/L (22-30); Chloride 102 mmol/L (98-107); Creatine Kinase 33 U/L (55-170); Glucose 135 mg/dL (74-99); Non-African American GFR(CKD) 70 (>60 ml/min/1.73 sqM); Potassium 4.1 mmol/L (3.5-5.1); Sodium 137 mmol/L (137-145); Total Bilirubin 0.8 mg/dL (0.2-1.3); Total Protein 7.4 g/dL (6.3-8.2)
[2024-04-23 08:15] VITALS: RESP 16
--- NOTE | 2024-04-23 08:17 | CT ---
EXAMINATION TYPE: CT angio head neck DATE OF EXAM: 04/23/2024 8:01 AM COMPARISON: CT head same day. CLINICAL INDICATION: Male, 58 years old with history of Neuro deficit, acute, stroke suspected; PHH, Syncope, confusion, cut over Lt eye TECHNIQUE: Axially acquired helical CT angiogram of the head and neck was obtained with contrast. Axi al images are supplemented with 3D reconstructions and MIP images which were post-processed at an in dependent workstation. NASCET criteria used. Contrast used:65 mL of Isovue 370 with IV Contrast, Oral contrast used: None. CT DLP: 444.7 mGycm, Automated exposure control for dose reduction was used. FINDINGS: CTA HEAD: No evidence of acute intracranial hemorrhage, mass effect, or midline shift. The ventricles, sulci, a nd cisterns are unremarkable. Vertebral arteries: The vertebral arteries are patent. Vertebral artery dominance: Codominant Basilar artery: The basilar artery is intact. The basilar artery bifurcation is normal. Internal Carotid arteries: The cervical, petrous, cavernous and supraclinoid segments are normal. ARNOLD: Patent with no evidence of aneurysm. ACOM: Present without evidence of aneurysm. MCA: Patent with no evidence of aneurysm. MANAGER OF INVESTIGATIONS: Patent with no evidence of aneurysm. PCOM: Hypoplastic bilaterally. Dural sinuses: Patent. CTA NECK: Right Carotid System: The common carotid artery and external carotid artery are patent. The carotid bifurcation demonstrate s no evidence of hemodynamically significant stenosis. The remaining portions of the internal carotid artery demonstrate normal size without significant narrowing. Left Carotid System: The common carotid artery and external carotid artery are patent. The carotid bifurcation demonstrate s no evidence of hemodynamically significant stenosis. The remaining portions of the internal carotid artery demonstrate normal size without significant narrowing. Vertebral arteries are patent without evidence hemodynamically significant stenosis. There is a three-vessel aortic arch. The origins of the great vessels are patent. No evidence of hemo dynamically significant stenosis. IMPRESSION: * No evidence of dissection of the cervical internal carotid arteries or vertebral arteries. * No any evidence of significant stenosis at the carotid bifurcations. * No evidence of intracranial high-grade stenosis or intracranial aneurysm. [facility], , 04/23/2024 8:15 AM
[2024-04-23] MEDS: TOPICAL SKIN ADHESIVE 1 EACH AMP TOPICAL ONE (08:21)
[2024-04-23] MEDS: DIPH,PERTUS(ACELL)TETVAC-LF 0.5 ML VIAL IM ONE (08:22)
[2024-04-23 08:38] VITALS: PULSE 77
--- NOTE | 2024-04-23 08:40 | CT ---
EXAMINATION TYPE: CT cervical spine w con DATE OF EXAM: 04/23/2024 8:34 AM COMPARISON: None. CLINICAL INDICATION: Male, 58 years old with history of Trauma; Syncope, confusion, cut over Lt eye, pain TECHNIQUE: Axial CT images from the skull base to the inferior aspect of T2 we obtained without intra venous contrast. Coronal and sagittal reformatted images were also reviewed. Contrast used:65 mL of Isovue 370 with IV Contrast, (if blank None) Oral contrast used: (if blank None) CT DLP: 444.7 mGycm, Automated exposure control for dose reduction was used. FINDINGS: Fracture: None. Osseous structures: Multilevel degenerative disc disease changes with endplate spurring and disc oste ophyte complex's. Vertebral alignment: Alignment within normal limits. Spinal canal/Neural Foramina: No evidence of significant spinal canal narrowing. No evidence for sign ificant neural foraminal stenosis. Neck soft tissues: Prevertebral soft tissues are within normal limits. Other: The airway is patent. The lung apices are clear. IMPRESSION: 1. No evidence of cervical spine fracture. 2. Mild multilevel degenerative disc disease. [facility], , 04/23/2024 8:37 AM
--- NOTE | 2024-04-23 08:40 | XR ---
EXAMINATION TYPE: XR chest 2V DATE OF EXAM: 04/23/2024 8:34 AM COMPARISON: Chest radiographs from 11/27/2017 CLINICAL INDICATION: Male, 58 years old with history of altered mental status; [facility] TECHNIQUE: XR chest 2V Frontal and lateral views of the chest. FINDINGS: Lungs/Pleura: There is no evidence of pleural effusion, focal consolidation, or pneumothorax. Pulmonary vascularity: Unremarkable. Heart/mediastinum: Cardiomediastinal silhouette is unremarkable. Musculoskeletal: No acute osseous pathology. IMPRESSION: No acute cardiopulmonary disease/process. [facility], , 04/23/2024 8:37 AM
[2024-04-23 08:50] VITALS: BP 156/104; TEMP 97.8
== END 2024-04-23 08:58 | disposition other institution (70) ==
LOC: EC 07:32
DX: S01.81XA Laceration without foreign body of other part of head, initial encounter (principal); I63.9 Cerebral infarction, unspecified; Z23 Encounter for immunization; W18.30XA Fall on same level, unspecified, initial encounter
CPT/HCPCS: 36415; 93005; 80053; 82550; 84484; 85025; 85610; 85730; 71046; 70496; 70450; 72126; 70498; 90715; 99285; 90471; 12011; Q9967

== ENCOUNTER → 2024-08-18 | Outpatient (CLI) | payer BC ==
[2024-08-18 11:08] VITALS: BP 129/85; PULSE 52; RESP 16; TEMP 97.9
--- NOTE | 2024-08-18 11:40 | P.PROGSL ---
Subjective DATE: 05/20/2024 FOLLOW UP VISIT. Patient with obstructive sleep apnea hypopnea syndrome return to sleep center for follow-up visit. Information from previous visit have been reviewed. Patient is using PAP equipment every night for the whole night, getting PAP supplies in time. The patient does not have significant problems with the mask, PAP unit and humidification. Hudson sleepiness scale is increased to 14. Recently patient was in the hospital, was diagnosed with epilepsy and possible Parkinson's. I checked information from PAP unit. PAP unit pressure 5-15, average 11.6 cm H2O. Usage is 90% for more then 4 hours, average 6.8 hours per night. Leak is 12 l/m, which is in acceptable range. Apnea Hypopnea Index is 3.9, which is normal. MEDICATIONS have been reviewed, please see below. During physical exam: GENERAL: A pleasant patient without any distress. VITAL SIGNS: Please see below, weight is 184 lbs. HEENT: PERRLA, EOMI.low position of soft palate, Mallapati 3. NECK: Supple. No JVD. LUNGS: Clear to percussion and to auscultation. Good air exchange. No wheezing or rhonchi. HEART: S1, S2 regular. ABDOMEN: Soft and nontender.[] EXTREMITIES: No clubbing or cyanosis. TRIMMER LOADER: Awake, alert, and oriented x3. No focal deficit. Tremor Impressions: 1. Obstructive sleep apnea-hypopnea syndrome. Patient demonstrated great compliance with treatment, benefiting from treatment. 2. Tremor. Possible Parkinson's. 3. History of seizures episodes. 4. Hypertension. 5. Hyperlipidemia. 6. Status post surgical treatment for carpal tunnel syndrome on the left side. 7. Dementia. Plan: 1. Continue using PAP equipment every night for the whole night. 2. Sleep hygiene with regular time in bed for at least 7.5-8 hours 3. PAP unit should stay lower then position of the head. 4. Advised patient to remove all remaining water from humidifier canister daily and make it dry after each usage. Refill canister with fresh distilled water before each usage. 5. Watching weight. 6. Precautions related to driving. No driving if feel any sleepiness. 7. I will maintain prescription for PAP supplies including mask, tube, filters. 8. Follow up visit in 4 months or earlier if patient has any problems. Thank you very much for allowing me to participate in the management of your patient. German Sher MD, PhD, FAASM. Diplomat of [place] [employer], Sleep Medicine Board by [place] [employer] [facility] [place] Objective - Vital Signs Vital Signs: Vital Signs Temp 97.9 F 08/18/24 11:07 Pulse 52 L 08/18/24 11:07 Resp 16 08/18/24 11:07 BP 129/85 08/18/24 11:07 Pulse Ox 99 08/18/24 11:07 FiO2 Intake & Output 08/17/24 08/18/24 08/18/24 18:59 06:59 18:59 Weight 83.461 kg Home Medications: Home Medications Medication Instructions Recorded Confirmed Type Metoprolol Tartrate [Lopressor] 12.5 mg PO BID 09/25/15 12/31/23 History Ibuprofen [Motrin] 800 mg PO Q6HR #30 tab 02/07/23 12/31/23 Rx Carbidopa-Levodopa 10-100 mg 25 mg PO TID 12/31/23 08/18/24 History [Sinemet 10-100 mg] Memantine [Namenda] 25 mg PO DAILY 12/31/23 12/31/23 History
== END ==
LOC: 3 N SLEEP 11:05
PROVIDERS: ATTEND Internal Medicine
DX: G47.33 Obstructive sleep apnea (adult) (pediatric) (principal); I10 Essential (primary) hypertension; E78.5 Hyperlipidemia, unspecified; F03.90 Unspecified dementia, unspecified severity, without behavioral disturbance, psychotic disturbance, mood disturbance, and anxiety; Z86.69 Personal history of other diseases of the nervous system and sense organs; Z98.890 Other specified postprocedural states
CPT/HCPCS: 99212